=== PATIENT | female | born 2000 | race African-American/Black ===

== ENCOUNTER 2021-06-19 06:19 | Emergency (ER) | payer OTHER ==
[2021-06-19 07:54] LABS: Bilirubin Neg (Negative); Blood, Urine 25 (Negative); Clarity Clear (Clear); Glucose, Urine (Dipstick) Normal (Negative); Ketone, Urine Negative (Negative); Leukocyte 500 (Negative); Nitrite Negative (Negative); Protein, Urine (Dipstick) 15 mg/dl (Neg-Trace); Specific Gravity, Urine 1.025 (1.002-1.036)
[2021-06-19 08:42] LABS: Bacteria/HPF 1+ HPF (None Seen); Mucous/LPF 1+ LPF (<2+); RBC/HPF 0-3 HPF (0-3); Squamous Epithelial 0-3 HPF (0-3); Yeast-Budding 1+ HPF (None Seen)
[2021-06-19 09:03] LABS: Pregnancy Test - Urine (BHCG) Negative (Negative); Pregu Control Background? CLEAR/WHITE (CLR/WHITE); Pregu Control Bar Appear? YES (CONTROL BAR); Specific Gravity 1.025 (1.002-1.036)
== END 2021-06-19 09:15 | disposition home or self-care (01) ==
LOC: CSHERS 06:19
DX: N30.00 Acute cystitis without hematuria (principal); D64.9 Anemia, unspecified
CPT/HCPCS: 81003; 81015; 81025; 87086; 99283

== ENCOUNTER 2022-11-14 14:31 | Day surgery (SDC) | payer OTHER ==
[2022-11-14 14:55] VITALS: BMI 26.2
[2022-11-14] MEDS ORDERED: hydrALAZINE 20 MG/ML VIAL SLOW IVP PRN (15:32)
[2022-11-14 17:32] LABS: Bilirubin Neg (Negative); Blood, Urine 250 (Negative); Clarity Cloudy (Clear); Glucose, Urine (Dipstick) Normal (Negative); Ketone, Urine Negative (Negative); Leukocyte 500 (Negative); Nitrite Negative (Negative); Protein, Urine (Dipstick) 30 mg/dl (Neg-Trace); Specific Gravity, Urine 1.015 (1.005-1.030)
[2022-11-14 18:08] LABS: Bacteria/HPF 2+ HPF (None Seen); Mucous/LPF 4+ LPF (<2+)
[2022-11-14 18:09] LABS: RBC/HPF 21-50 HPF (0-3)
[2022-11-14 18:10] LABS: CAUTI Indications for Culture Pregnancy; Trichomonas/HPF 3+ HPF (None Seen)
[2022-11-14 18:12] LABS: Urine Culture Reflex Yes Yes
== END 2022-11-14 18:35 | disposition home or self-care (01) ==
LOC: CSHLD/OP 14:31
PROVIDERS: ATTEND Family Medicine
DX: O26.853 Spotting complicating pregnancy, third trimester (principal); O99.013 Anemia complicating pregnancy, third trimester; D64.9 Anemia, unspecified; O23.593 Infection of other part of genital tract in pregnancy, third trimester; B96.89 Other specified bacterial agents as the cause of diseases classified elsewhere; Z3A.35 35 weeks gestation of pregnancy
CPT/HCPCS: 81001; 87086; 99282

== ENCOUNTER 2022-11-16 04:11 | Inpatient (IN) | payer OTHER ==
[2022-11-16 04:47] VITALS: BMI 25.2
[2022-11-16] MEDS ORDERED: hydrALAZINE 20 MG/ML VIAL SLOW IVP PRN ×2 (05:14→06:13)
[2022-11-16] MEDS ORDERED: Ondansetron PF 4 MG/2 ML Vial IVP PRN ×2 (06:13→10:37)
[2022-11-16] MEDS ORDERED: Bicitra 30 ML UDCUP PO PRN (06:13)
[2022-11-16] MEDS ORDERED: Famotidine/PF 20 mg/2ml Vial SLOW IVP PRN (06:13)
[2022-11-16] MEDS ORDERED: Promethazine HCl 25 MG/ML VIAL IM PRN ×2 (06:13→10:37)
[2022-11-16] MEDS ORDERED: Lactated Ringer's 1,000 ML IV SCH (06:15)
[2022-11-16] MEDS ORDERED: NS w/ Oxytocin 30 units 500 ML IV SCH (06:15)
[2022-11-16] MEDS ORDERED: CEFAZOLIN 2 GM in Sodium Chloride 0.9% 100 ML IVPB SCH (06:15)
[2022-11-16 06:33] LABS: Mean Corpuscular HGB CONC 30.5 g/dL (32.0-36.0); Mean Corpuscular Hemoglobin 24.4 pg (27.0-33.0); Mean Corpuscular Volume 80.2 fl (81.6-98.3); Mean Platelet Volume 11.5 fl (7.4-10.4); Platelet Count 211 10x3/uL (150-450); RBC Distribution Width 19.9 % (11.5-14.5); Red Blood Cell (RBC) Count 4.09 10x6/uL (3.90-5.03)
[2022-11-16 07:16] LABS: HBSAg Index 0.16 S/CO (0-0.99); Hep B Surf Ag - L&D Non-Reactive S/CO (NonReactive)
[2022-11-16] MEDS ORDERED: Phenylephrine 40 MG/NS 250 ML 250 ML ONE (07:43)
[2022-11-16] MEDS ORDERED: Ondansetron PF 4 MG/2 ML Vial ONE (07:43)
[2022-11-16] MEDS ORDERED: Morphine PF 10 MG/10 ML VIAL ONE (07:43)
[2022-11-16] MEDS ORDERED: Dexamethasone 4 mg/ml Vial ONE (07:43)
[2022-11-16] MEDS ORDERED: Oxytocin 10 UNITS/ML VIAL ONE ×2 (07:43→09:04)
[2022-11-16] MEDS ORDERED: Ketorolac Tromethamine 30 MG/ML VIAL ONE (07:43)
[2022-11-16 07:45] LABS: Syphilis Antibody Nonreactive (Nonreactive); Syphilis Antibody Index 0.07 S/CO (<1.00 Non-Reactive)
[2022-11-16] MEDS ORDERED: Tranexamic Acid 1,000 MG/10 ML VIAL ONE (07:59)
[2022-11-16] MEDS ORDERED: Methylergonovine 0.2 MG/ML VIAL ONE (08:00)
[2022-11-16] MEDS ORDERED: Carboprost 250 MCG/ML AMP ONE (08:00)
[2022-11-16] MEDS ORDERED: HYDROcodone/Acetaminophen 5/325 mg Tablet PO PRN ×3 (08:42→22:45)
[2022-11-16] MEDS ORDERED: Lanolin Ointment 7 GM TUBE TOP PRN (08:42)
[2022-11-16] MEDS ORDERED: Acetaminophen 325 MG TAB PO PRN (08:42)
[2022-11-16] MEDS ORDERED: Methylergonovine 0.2 MG/ML VIAL IM PRN (08:48)
[2022-11-16] MEDS ORDERED: Misoprostol 200 MCG TAB PR PRN (08:48)
[2022-11-16] MEDS ORDERED: diphenhydrAMINE 50 MG/ML VIAL ONE (09:11)
[2022-11-16] MEDS ORDERED: Fentanyl 250 MCG/5 ML VIAL ONE (09:12)
[2022-11-16] MEDS ORDERED: Moisturizing Cream (Eucerin) 113 GM JAR TOP PRN (10:37)
[2022-11-16] MEDS ORDERED: Ondansetron HCl/PF 4 MG/2 ML Vial IVP PRN (10:37)
[2022-11-16] MEDS ORDERED: HYDROmorphone 2 MG/ML VIAL SLOW IVP PRN (10:37)
[2022-11-16] MEDS ORDERED: Fentanyl 100 MCG/2 ML VIAL SLOW IVP PRN (10:37)
[2022-11-16] MEDS ORDERED: Naloxone HCl 0.4 mg/ml Vial IV PRN (10:37)
[2022-11-16] MEDS ORDERED: Promethazine HCl 25 MG SUPP PR PRN (10:37)
[2022-11-16] MEDS ORDERED: Naloxone HCl 0.4 mg/ml Vial IVP PRN ×2 (10:37)
[2022-11-16] MEDS ORDERED: diphenhydrAMINE 50 MG/ML VIAL IVP PRN (10:37)
[2022-11-16] MEDS ORDERED: Meperidine HCl/PF 25 MG/ML VIAL SLOW IVP PRN (10:37)
[2022-11-16] MEDS ORDERED: Communication Order-Pharmacy FS SCH (10:45)
[2022-11-16] MEDS ORDERED: Ibuprofen 800 MG TAB PO SCH (14:00)
[2022-11-16] MEDS ORDERED: diphenhydrAMINE 25 MG CAP PO PRN (14:06)
[2022-11-16] MEDS: Docusate 100 MG CAP PO SCH ×2 (14:45→23:05)
[2022-11-16] MEDS: Prenatal Vitamin 1 TAB PO SCH (14:45)
[2022-11-16 15:44] LABS: Hemoglobin 10.5 g/dL (12.0-15.5)
[2022-11-16 16:04] LABS: D-Dimer Test 7.37 mg/L FEU (0.19-0.50); INR-International Normal Ratio 0.9; PTT 27.8 sec (22.0-33.0); Prothrombin Time 9.9 sec (9.5-12.1)
[2022-11-16] MEDS: Ketorolac Tromethamine 30 MG/ML VIAL IVP PRN ×2 (16:22→23:05)
[2022-11-17 04:28] LABS: Hemoglobin 9.3 g/dL (12.0-15.5); Mean Corpuscular HGB CONC 30.1 g/dL (32.0-36.0); Mean Corpuscular Hemoglobin 24.3 pg (27.0-33.0); Mean Corpuscular Volume 80.9 fl (81.6-98.3); Mean Platelet Volume 11.4 fl (7.4-10.4); Platelet Count 198 10x3/uL (150-450); RBC Distribution Width 19.9 % (11.5-14.5); Red Blood Cell (RBC) Count 3.82 10x6/uL (3.90-5.03); White Blood Cell (WBC) Count 12.3 10x3/uL (3.5-10.5)
[2022-11-17] MEDS ORDERED: Ferrous Sulfate 325 MG TAB PO SCH (07:15)
[2022-11-17] MEDS: Docusate 100 MG CAP PO SCH ×2 (08:46→22:12)
[2022-11-17] MEDS: Prenatal Vitamin 1 TAB PO SCH (08:46)
[2022-11-17] MEDS: HYDROcodone/Acetaminophen 5/325 mg Tablet PO PRN ×2 (08:46→15:43)
[2022-11-17] MEDS: Ibuprofen 800 MG TAB PO PRN ×2 (15:33→22:12)
[2022-11-18 05:07] LABS: Hemoglobin 9.3 g/dL (12.0-15.5)
[2022-11-18] MEDS: Ibuprofen 800 MG TAB PO PRN ×2 (05:49→13:32)
[2022-11-18 07:36] VITALS: BP 98/53; TEMP 98.7
[2022-11-18] MEDS: Prenatal Vitamin 1 TAB PO SCH (08:06)
[2022-11-18] MEDS: Docusate 100 MG CAP PO SCH (08:06)
== END 2022-11-18 13:40 | disposition home or self-care (01) | DRG 787 ==
LOC: CSHLD/OP 04:11 → CSHLD 07:21 → CSHPED 14:35
PROVIDERS: ADMIT Emergency Medicine; ATTEND Emergency Medicine
PROC: 10D00Z1 Extraction of Products of Conception, Low, Open Approach (ICD-10-PCS; principal; 2022-11-16)
DX: O60.14X0 Preterm labor third trimester with preterm delivery third trimester, not applicable or unspecified (principal); O72.1 Other immediate postpartum hemorrhage; Z3A.35 35 weeks gestation of pregnancy; Z37.0 Single live birth; O34.211 Maternal care for low transverse scar from previous cesarean delivery; O99.02 Anemia complicating childbirth; D64.9 Anemia, unspecified; Z14.1 Cystic fibrosis carrier
CPT/HCPCS: 36415; 51702; 85014; 85018; 85027; 85049; 85300; 85362; 85379; 85384; 85610; 85730; 86780; 86850; 86900; 86901; 87340; 88307; 99285; J1100; J1200; J1885; J2274; J2405; J2590; J3010; J3490; S0028

== ENCOUNTER 2023-09-14 07:25 | Emergency (ER) | payer SELFPAY ==
[2023-09-14 09:04] LABS: Bilirubin Neg (Negative); Blood, Urine 10 (Negative); Clarity Clear (Clear); Glucose, Urine (Dipstick) Normal (Negative); Ketone, Urine 5 mg/dL (Negative); Leukocyte 100 (Negative); Nitrite Negative (Negative); Protein, Urine (Dipstick) 30 mg/dl (Neg-Trace); pH, Urine 6.5 (5.0-9.0)
[2023-09-14 09:07] LABS: Pregnancy Test - Urine (BHCG) Negative (Negative); Pregu Control Background? CLEAR/WHITE (CLR/WHITE); Pregu Control Bar Appear? YES (CONTROL BAR)
[2023-09-14 09:20] LABS: CAUTI Indications for Culture Dysuria,urgency,freq
[2023-09-14 09:21] LABS: Bacteria/HPF 1+ HPF (None Seen); RBC/HPF 0-3 HPF (0-3); Squamous Epithelial 0-3 HPF (0-3)
[2023-09-14 09:22] LABS: Mucous/LPF 2+ LPF (<2+)
[2023-09-14 09:23] LABS: Urine Culture Reflex No No
[2023-09-14] MEDS ORDERED: Sterile Water 10 ML ONE (10:40)
[2023-09-14] MEDS ORDERED: cefTRIAXone (ROCEPHIN) 500 MG VIAL ONE (10:40)
[2023-09-14 15:47] LABS: Chlam.trachomatis by PCR,Urine Not Detected (NotDetected); GC N.gonorrhoeae PCR,UrineVOID DETECTED (NotDetected)
== END 2023-09-14 11:05 | disposition home or self-care (01) ==
LOC: CSHERS 07:25
DX: R30.0 Dysuria (principal)
CPT/HCPCS: 81001; 81025; 87491; 87591; 96372; 99284; J0696